=== PATIENT | female | born 1945 | race Caucasian/White ===

== ENCOUNTER → 2020-11-04 12:53 | Outpatient (CLI) | payer MEDICARE, SELFPAY ==
[2020-11-04 14:45] LABS: Chloride 106 mmol/L (98-107); Potassium 3.5 mmoL/L (3.5-5.1); Sodium 143 mmol/L (136-145)
[2020-11-04 14:47] LABS: Alanine Aminotransferase 20 U/L (12-78); Aspartate Amino Transferase 35 U/L (14-36); Blood Urea Nitrogen 8 mg/dl (7-17); Estimated Glomerular Filt Rate 61 ml/min (>60); GFR (African American) 74 ML/MIN (>60)
[2020-11-04 14:48] LABS: Albumin Level 4.2 g/dl (3.5-5.0); Albumin/Globulin Ratio 1.5 (1.1-1.8); Alkaline Phosphatase 104 U/L (38-126); Anion Gap 11.5 mEq/L (5-15); Calcium 9.5 mg/dl (8.4-10.2); Carbon Dioxide 29 mmol/L (22.0-30.0); Chol/HDL Ratio 3.7 (1-3.5); Cholesterol 155 mg/dl (140-200); Globulin 2.8 g/dL (1.3-3.2); Glucose 96 mg/dl (74-100); HDL Cholesterol 42 mg/dl (40-60); Triglycerides 146 mg/dl (30-150); VLDL Cholesterol 29 mg/dL (0-40)
[2020-11-04 15:00] LABS: Direct LDL Cholesterol 79.35 mg/dL (100-129)
== END ==
PROVIDERS: Visit Provider Internal Medicine
DX: D64.9 Anemia, unspecified (principal); I10 Essential (primary) hypertension; E78.5 Hyperlipidemia, unspecified; E03.9 Hypothyroidism, unspecified
CPT/HCPCS: 80053; 80061

== ENCOUNTER → 2021-05-04 12:58 | Outpatient (CLI) | payer MEDICARE, SELFPAY ==
[2021-05-04 14:03] LABS: Basophils % 0.9 % (0.1-2.0); Eosinophils # 0.1 K/mm3 (0.0-0.4); Eosinophils % 2.5 % (0.1-12.0); Hemoglobin 13.7 g/dL (12.2-16.2); Lymphocytes # 1.4 K/mm3 (0.7-4.5); Lymphocytes % 31.7 % (10-50); Mean Corpuscular HGB Conc 32.6 g/dL (31.8-35.4); Mean Corpuscular Hemoglobin 30.1 pg (27.0-31.2); Mean Corpuscular Volume 92.3 fl (81-99); Mean Platelet Volume 9.7 fl (7.4-10.4); Monocytes # 0.2 K/mm3 (0.1-1.0); Monocytes % 4.9 % (1.7-9.3); Neutrophils # 2.7 K/mm3 (1.8-7.8); Neutrophils % 59.9 % (37.0-80.0); Platelet Count 236 K/mm3 (142-424); Red Blood Count 4.55 M/mm3 (4.20-5.40); Red Cell Distribution Width 13.4 % (11.5-17.5); White Blood Count 4.4 K/mm3 (4.8-10.8)
[2021-05-04 15:49] LABS: Alanine Aminotransferase 17 U/L (12-78); Albumin Level 4.2 g/dl (3.5-5.0); Albumin/Globulin Ratio 1.6 (1.1-1.8); Alkaline Phosphatase 93 U/L (38-126); Anion Gap 9.7 mEq/L (5-15); Aspartate Amino Transferase 29 U/L (14-36); Bilirubin,Total 1.1 mg/dl (0.2-1.3); Blood Urea Nitrogen 9 mg/dl (7-17); Calcium 9.1 mg/dl (8.4-10.2); Carbon Dioxide 31 mmol/L (22.0-30.0); Chloride 105 mmol/L (98-107); Chol/HDL Ratio 3.8 (1-3.5); Cholesterol 150 mg/dl (140-200); Estimated Glomerular Filt Rate 54 ml/min (>60); GFR (African American) 65 ML/MIN (>60); Globulin 2.7 g/dL (1.3-3.2); Glucose 89 mg/dl (74-100); HDL Cholesterol 40 mg/dl (40-60); Potassium 3.7 mmoL/L (3.5-5.1); Sodium 142 mmol/L (136-145); Total Protein,Serum 6.9 g/dl (6.3-8.2); Triglycerides 134 mg/dl (30-150); VLDL Cholesterol 27 mg/dL (0-40)
[2021-05-04 16:00] LABS: Direct LDL Cholesterol 73.57 mg/dL (100-129)
[2021-05-04 16:27] LABS: Thyroid Stimulating Hormone 4.82 uIU/mL (0.465-4.68)
== END ==
PROVIDERS: Visit Provider Internal Medicine
DX: D64.9 Anemia, unspecified (principal); E78.5 Hyperlipidemia, unspecified; E03.9 Hypothyroidism, unspecified; I10 Essential (primary) hypertension
CPT/HCPCS: 80053; 80061; 84443; 85025

== ENCOUNTER → 2021-08-12 12:17 | Outpatient (CLI) | payer MEDICARE, SELFPAY | PROVIDERS: PCP Internal Medicine; Visit Provider Internal Medicine | DX: I10 Essential (primary) hypertension (principal) ==

== ENCOUNTER → 2021-08-12 12:37 | Outpatient (CLI) | payer MEDICARE, SELFPAY ==
[2021-08-12 15:20] LABS: Chloride 106 mmol/L (98-107); Potassium 4.3 mmoL/L (3.5-5.1); Sodium 142 mmol/L (136-145)
[2021-08-12 15:22] LABS: Blood Urea Nitrogen 7 mg/dl (7-17); Estimated Glomerular Filt Rate 54 ml/min (>60); GFR (African American) 65 ML/MIN (>60)
[2021-08-12 15:23] LABS: Anion Gap 12.3 mEq/L (5-15); Calcium 10.2 mg/dl (8.4-10.2); Carbon Dioxide 28 mmol/L (22.0-30.0); Glucose 89 mg/dl (74-100)
[2021-08-12 16:05] LABS: Uric Acid 7.6 mg/dl (2.5-6.2)
== END ==
PROVIDERS: PCP Internal Medicine; Visit Provider Internal Medicine
DX: I10 Essential (primary) hypertension (principal); E03.9 Hypothyroidism, unspecified; M79.675 Pain in left toe(s); Z87.39 Personal history of other diseases of the musculoskeletal system and connective tissue
CPT/HCPCS: 80048; 84443; 84550

== ENCOUNTER → 2021-11-17 16:57 | Outpatient (CLI) | payer MEDICARE, SELFPAY ==
[2021-11-17 18:21] LABS: Basophils # 0.4 K/mm3 (0-0.2); Basophils % 6.3 % (0.1-2.0); Eosinophils # 0.1 K/mm3 (0.0-0.4); Hematocrit 51.5 % (37.0-47.0); Hemoglobin 13.8 g/dL (12.2-16.2); Lymphocytes # 1.9 K/mm3 (0.7-4.5); Lymphocytes % 29.9 % (10-50); Mean Corpuscular HGB Conc 26.8 g/dL (31.8-35.4); Mean Corpuscular Hemoglobin 29.6 pg (27.0-31.2); Mean Corpuscular Volume 110.3 fl (81-99); Mean Platelet Volume 24.9 fl (7.4-10.4); Monocytes # 0.4 K/mm3 (0.1-1.0); Monocytes % 6.4 % (1.7-9.3); Neutrophils % 61.7 % (37.0-80.0); Platelet Count 163 K/mm3 (142-424); Red Blood Count 4.67 M/mm3 (4.20-5.40); Red Cell Distribution Width 19.4 % (11.5-17.5); White Blood Count 6.5 K/mm3 (4.8-10.8)
[2021-11-17 19:39] LABS: Alanine Aminotransferase 25 U/L (12-78); Albumin Level 4.2 g/dl (3.5-5.0); Albumin/Globulin Ratio 1.6 (1.1-1.8); Alkaline Phosphatase 131 U/L (38-126); Anion Gap 16.6 mEq/L (5-15); Aspartate Amino Transferase 36 U/L (14-36); Bilirubin,Total 1.2 mg/dl (0.2-1.3); Blood Urea Nitrogen 11 mg/dl (7-17); Calcium 9.3 mg/dl (8.4-10.2); Carbon Dioxide 28 mmol/L (22.0-30.0); Chloride 100 mmol/L (98-107); Chol/HDL Ratio 3.9 (1-3.5); Cholesterol 145 mg/dl (140-200); Estimated Glomerular Filt Rate 54 ml/min (>60); GFR (African American) 65 ML/MIN (>60); Globulin 2.7 g/dL (1.3-3.2); Glucose 83 mg/dl (74-100); HDL Cholesterol 37 mg/dl (40-60); Potassium 3.6 mmoL/L (3.5-5.1); Sodium 141 mmol/L (136-145); Total Protein,Serum 6.9 g/dl (6.3-8.2); Triglycerides 184 mg/dl (30-150); Uric Acid 8.8 mg/dl (2.5-6.2); VLDL Cholesterol 37 mg/dL (0-40)
[2021-11-18 14:52] LABS: Reticulocyte % (Auto) 1.5 % (0.9-3.2)
[2021-11-18 16:01] LABS: Vitamin B12 524 pg/mL (239-931)
[2021-11-18 16:03] LABS: Folate 4.86 ng/mL
== END ==
PROVIDERS: PCP Internal Medicine; Visit Provider Internal Medicine
DX: I10 Essential (primary) hypertension (principal); E03.9 Hypothyroidism, unspecified; E78.5 Hyperlipidemia, unspecified; D64.9 Anemia, unspecified; K59.00 Constipation, unspecified; D75.89 Other specified diseases of blood and blood-forming organs; Z87.39 Personal history of other diseases of the musculoskeletal system and connective tissue
CPT/HCPCS: 80053; 80061; 82607; 82746; 84550; 85025; 85044

== ENCOUNTER → 2022-05-18 11:54 | Outpatient (CLI) | payer MEDICARE, SELFPAY ==
[2022-05-18 12:45] LABS: Basophils # 0.1 K/mm3 (0-0.2); Basophils % 1.2 % (0.1-2.0); Eosinophils # 0.1 K/mm3 (0.0-0.4); Eosinophils % 2.3 % (0.1-12.0); Hematocrit 41.7 % (37.0-47.0); Hemoglobin 13.6 g/dL (12.2-16.2); Lymphocytes # 1.3 K/mm3 (0.7-4.5); Lymphocytes % 33.4 % (10-50); Mean Corpuscular HGB Conc 32.6 g/dL (31.8-35.4); Mean Corpuscular Hemoglobin 28.5 pg (27.0-31.2); Mean Corpuscular Volume 87.4 fl (81-99); Mean Platelet Volume 9.9 fl (7.4-10.4); Monocytes # 0.2 K/mm3 (0.1-1.0); Monocytes % 5.6 % (1.7-9.3); Neutrophils # 2.2 K/mm3 (1.8-7.8); Neutrophils % 57.5 % (37.0-80.0); Platelet Count 196 K/mm3 (142-424); Red Blood Count 4.77 M/mm3 (4.20-5.40); Red Cell Distribution Width 13.2 % (11.5-17.5); White Blood Count 3.9 K/mm3 (4.8-10.8)
[2022-05-18 13:17] LABS: Erythrocyte Sedimentation Rate 13 mm/hr (0-30)
[2022-05-18 14:04] LABS: Chloride 104 mmol/L (98-107); Potassium 3.7 mmoL/L (3.5-5.1); Sodium 140 mmol/L (136-145)
[2022-05-18 14:06] LABS: Alanine Aminotransferase 24 U/L (12-78); Aspartate Amino Transferase 37 U/L (14-36); Blood Urea Nitrogen 12 mg/dl (7-17); Estimated Glomerular Filt Rate 54 ml/min (>60); GFR (African American) 65 ML/MIN (>60)
[2022-05-18 14:07] LABS: Albumin Level 4.2 g/dl (3.5-5.0); Albumin/Globulin Ratio 1.6 (1.1-1.8); Alkaline Phosphatase 107 U/L (38-126); Anion Gap 11.7 mEq/L (5-15); Bilirubin,Total 1.3 mg/dl (0.2-1.3); Calcium 9.1 mg/dl (8.4-10.2); Carbon Dioxide 28 mmol/L (22.0-30.0); Chol/HDL Ratio 3.3 (1-3.5); Cholesterol 130 mg/dl (140-200); Globulin 2.6 g/dL (1.3-3.2); Glucose 102 mg/dl (74-100); HDL Cholesterol 40 mg/dl (40-60); Total Protein,Serum 6.8 g/dl (6.3-8.2); Triglycerides 113 mg/dl (30-150); VLDL Cholesterol 23 mg/dL (0-40)
[2022-05-18 14:18] LABS: Direct LDL Cholesterol 73.88 mg/dL (100-129)
[2022-05-18 14:37] LABS: Thyroid Stimulating Hormone 0.62 uIU/mL (0.465-4.68)
[2022-05-18 16:01] LABS: Vitamin B12 605 pg/mL (239-931)
[2022-05-18 16:13] LABS: Folate 5.29 ng/mL
== END ==
PROVIDERS: PCP Internal Medicine; Visit Provider Internal Medicine
DX: I10 Essential (primary) hypertension (principal); E03.9 Hypothyroidism, unspecified; E78.5 Hyperlipidemia, unspecified; D64.9 Anemia, unspecified; K59.00 Constipation, unspecified; G60.9 Hereditary and idiopathic neuropathy, unspecified
CPT/HCPCS: 80053; 80061; 82607; 82746; 84443; 85025; 85651

== ENCOUNTER 2022-10-07 09:17 | Emergency (ER) | payer MEDICARE, SELFPAY ==
[2022-10-07 09:30] VITALS: BP 138/109; PULSE 65; RESP 19; TEMP 36.8; O2SAT 97; BMI 24.7
--- NOTE | 2022-10-07 09:30 | EXP.UTC ---
Discharge Plan Disposition Patient Disposition: Home, Self-Care Condition: Good Prescriptions Prescriptions: New methylprednisolone 4 mg Tablets,Dose Pack 4 mg PO DIRECTED Qty: 21 0RF No Action levothyroxine [Synthroid] 88 MCG tablet 88 mcg PO DAILY metoprolol tartrate 50 MG tablet 50 mg PO DAILY lisinopril 2.5 MG tablet 2.5 mg PO DAILY omega-3 fatty acids [Fish Oil] 300 MG capsule 300 mg PO DAILY promethazine 12.5 MG tablet 12.5 mg PO TID PRN (Reason: Vomiting) Qty: 20 0RF promethazine 12.5 MG suppository 12.5 mg * BID Qty: 20 0RF Referrals Follow up/Referrals: Shiraz Aviles MD [Primary Care Provider] - See instructions Activity Restrictions/Add. Instructions Additional Instructions/Restrictions: Rest the extremity, Elevate the extremity as tolerated while you are resting. Take the medication as directed. Don't start the oral steroids (methylprednisone) until tomorrow since you had the shot here today. Follow up with your regular doctor. GO TO THE ER FOR ANY WORSENING SYMPTOMS Clinical Impressions Clinical Impression: Gout attack Instructions Patient Instructions: Gout, DI for Gout, Ketorolac, Methylprednisolone Injection Discharge ED Provider: Luis Santillan [facility] [place] HPI General Stated complaint: Right foot toe pain Time Seen by Provider: 10/07/22 09:30 History of Present Illness Provider Complaint: She states that she has had right foot pain for the past 2 days. She has a history of gout. She states that she is having a gout flare up now. Related Data Home Medications Medication Instructions Recorded Confirmed levothyroxine 88 mcg tablet 88 mcg PO DAILY thyroid 11/04/17 11/04/17 (Synthroid) lisinopril 2.5 mg tablet 2.5 mg PO DAILY High blood pressure 11/04/17 11/04/17 metoprolol tartrate 50 mg tablet 50 mg PO DAILY High blood pressure 11/04/17 11/04/17 omega-3 fatty acids 300 mg capsule 300 mg PO DAILY Supplement 11/04/17 11/04/17 (Fish Oil) Previous Rx's Medication Instructions Recorded promethazine 12.5 mg rectal 12.5 mg * BID ##20 11/05/17 suppository promethazine 12.5 mg tablet 12.5 mg PO TID PRN Vomiting #20 11/05/17 tabs methylprednisolone 4 mg tablets in 4 mg PO DIRECTED #21 tabs 10/07/22 a dose pack Allergies Allergy/AdvReac Type Severity Reaction Status Date / Time morphine Allergy Mild Vomiting Verified 11/04/17 16:41 codeine Allergy Verified 10/07/22 09:46 [facility] Disclaimer: The information contained in this section may have been updated after the patient was seen, as this information can be updated by other users. Medical History (Updated 10/07/22 @ 10:02 by Luis Santillan APRN) Hypertension Social History Smoking Status: Never smoker alcohol intake: never current occupational status: retired Travel in the last 8 weeks: None ROS Obtained: Yes All systems reviewed & no additional complaints except as documented Constitutional Constitutional: Denies chills and Denies fever(s) Eyes Eyes: Denies eye discharge ENT Ears, Nose, Mouth, and Throat: Denies dizziness, Denies otalgia and Denies sore throat Cardiovascular Cardiovascular: Denies chest pain Respiratory Respiratory: Denies shortness of breath, Denies chest congestion, Denies cough, Denies stridor and Denies wheezing Gastrointestinal Gastrointestingal: Denies nausea or vomiting Musculoskeletal Musculoskeletal: Reports as per HPI Integumentary/Breasts Skin/Breast: Denies rash Neurologic Neurologic: Denies dizziness and Denies paresthesias Allergic/Immunologic Allergic/Immunologic: Denies wheezing Physical Exam General General appearance: alert and in no apparent distress Head Head exam: atraumatic, normocephalic and normal inspection Eye Eye exam: Present normal appearance, PERRL and EOMI ENT ENT exam: Present normal exam, normal oropharynx, mucous membranes moist, TM's normal bilaterally and normal external ear e
[2022-10-07 10:03] VITALS: BP 138/109; PULSE 65; RESP 19; TEMP 36.8; O2SAT 97
== END 2022-10-07 10:08 | disposition home or self-care (01) ==
PROVIDERS: Emergency Provider Nurse Practitioner Family; PCP Internal Medicine
DX: M10.071 Idiopathic gout, right ankle and foot (principal); I10 Essential (primary) hypertension
CPT/HCPCS: 96372; 99204; 99212; G0463

== ENCOUNTER → 2022-10-29 17:10 | Outpatient (CLI) | payer MEDICARE, SELFPAY ==
[2022-10-29 17:58] LABS: Anion Gap 12.6 mEq/L (5-15); Blood Urea Nitrogen 10 mg/dl (7-17); Calcium 9.7 mg/dl (8.4-10.2); Carbon Dioxide 31 mmol/L (22.0-30.0); Chloride 102 mmol/L (98-107); Estimated Glomerular Filt Rate 48 ml/min (>60); GFR (African American) 58 ML/MIN (>60); Glucose 82 mg/dl (74-100); Potassium 3.6 mmoL/L (3.5-5.1); Sodium 142 mmol/L (136-145); Uric Acid 7.6 mg/dl (2.5-6.2)
== END ==
PROVIDERS: PCP Internal Medicine; Visit Provider Internal Medicine
DX: M10.9 Gout, unspecified (principal)
CPT/HCPCS: 80048; 84550

== ENCOUNTER → 2022-11-17 13:23 | Outpatient (CLI) | payer MEDICARE, SELFPAY ==
[2022-11-17 14:41] LABS: Alanine Aminotransferase 31 U/L (12-78); Albumin/Globulin Ratio 1.5 (1.1-1.8); Alkaline Phosphatase 99 U/L (38-126); Anion Gap 10.7 mEq/L (5-15); Aspartate Amino Transferase 37 U/L (14-36); Bilirubin,Total 1.4 mg/dl (0.2-1.3); Blood Urea Nitrogen 9 mg/dl (7-17); Calcium 9.2 mg/dl (8.4-10.2); Carbon Dioxide 30 mmol/L (22.0-30.0); Chloride 104 mmol/L (98-107); Chol/HDL Ratio 3.9 (1-3.5); Cholesterol 145 mg/dl (140-200); Estimated Glomerular Filt Rate 54 ml/min (>60); GFR (African American) 65 ML/MIN (>60); Globulin 2.6 g/dL (1.3-3.2); Glucose 102 mg/dl (74-100); HDL Cholesterol 37 mg/dl (40-60); Potassium 3.7 mmoL/L (3.5-5.1); Sodium 141 mmol/L (136-145); Total Protein,Serum 6.6 g/dl (6.3-8.2); Triglycerides 176 mg/dl (30-150); Uric Acid 7.6 mg/dl (2.5-6.2); VLDL Cholesterol 35 mg/dL (0-40)
[2022-11-17 14:51] LABS: Direct LDL Cholesterol 76.56 mg/dL (100-129)
== END ==
PROVIDERS: PCP Internal Medicine; Visit Provider Internal Medicine
DX: I10 Essential (primary) hypertension (principal); E78.5 Hyperlipidemia, unspecified; M10.9 Gout, unspecified
CPT/HCPCS: 80053; 80061; 84550

== ENCOUNTER → 2023-01-19 14:15 | Outpatient (CLI) | payer MEDICARE, SELFPAY ==
[2023-01-19 15:21] LABS: Alanine Aminotransferase 24 U/L (12-78); Albumin Level 4.2 g/dl (3.5-5.0); Albumin/Globulin Ratio 1.6 (1.1-1.8); Alkaline Phosphatase 101 U/L (38-126); Anion Gap 12.4 mEq/L (5-15); Aspartate Amino Transferase 35 U/L (14-36); Blood Urea Nitrogen 8 mg/dl (7-17); Calcium 8.8 mg/dl (8.4-10.2); Carbon Dioxide 27 mmol/L (22.0-30.0); Chloride 105 mmol/L (98-107); Estimated Glomerular Filt Rate 48 ml/min (>60); GFR (African American) 58 ML/MIN (>60); Globulin 2.7 g/dL (1.3-3.2); Glucose 93 mg/dl (74-100); Potassium 3.4 mmoL/L (3.5-5.1); Sodium 141 mmol/L (136-145); Total Protein,Serum 6.9 g/dl (6.3-8.2)
== END ==
PROVIDERS: PCP Internal Medicine; Visit Provider Internal Medicine
DX: R74.8 Abnormal levels of other serum enzymes (principal)
CPT/HCPCS: 80053

== ENCOUNTER 2023-02-07 12:00 | Emergency (ER) | payer MEDICARE, SELFPAY ==
[2023-02-07 13:55] VITALS: BP 130/80; PULSE 107; RESP 21; TEMP 37.5; O2SAT 98; BMI 26.2
[2023-02-07 14:20] LABS: UTC Influenza A Antigen Negative (Negative); UTC Influenza B Antigen Negative (Negative)
--- NOTE | 2023-02-07 14:20 | EXP.UTC ---
Discharge Plan Disposition Patient Disposition: Home, Self-Care Condition: Good Prescriptions Prescriptions: New ondansetron 4 mg tablet,disintegrating 4 mg PO Q8H PRN (Reason: nausea and vomiting) Qty: 10 0RF cefdinir 300 mg capsule 300 mg PO BID Qty: 20 0RF No Action levothyroxine 100 mcg tablet 100 mcg PO DAILY metoprolol tartrate 50 mg tablet 50 mg PO DAILY aspirin 81 mg Tablet,Chewable 81 mg PO DAILY lovastatin 20 mg tablet 20 mg PO DAILY lisinopril 2.5 mg tablet 2.5 mg PO DAILY Referrals Follow up/Referrals: Shiraz Aviles MD [Primary Care Provider] - See instructions Activity Restrictions/Add. Instructions Additional Instructions/Restrictions: *Monitor Temp, Over the counter Motrin or Tylenol as directed/as needed Tylenol every 4 hours and Motrin every 6 hours (as long as your family doctor has told you that you can take it) for fever or pain. and straight to ER if unable to lower temp less than 101.0 after medication given *Warm salt water gargles may help to soothe the throat *Throat Lozenges? *Warm fluids like tea with honey may help to soothe the throat? *Sleep elevated *Humidifier/Vaporizer Follow up IMMEDIATELY for new or worsening symptoms or no Noticeable improvement over the next 48-72 hours. 911 for difficulty breathing or swallowing You were tested for today for COVID19 your test result should be back in the next 24-72 hours, you may check your results on the [facility] [employer] Health Portal if your COVID is positive you must Q Clinical Impressions Clinical Impression: Sinusitis Qualifiers: Sinusitis location: unspecified location Chronicity: unspecified Qualified Code(s): J32.9 - Chronic sinusitis, unspecified Instructions Patient Instructions: DI for Sinusitis, DI for Nausea -- Adult, DI for Ear Pain-Adult Discharge ED Provider: Heaven [place] [facility] [place] General Stated complaint: congestion Mode of Arrival: Ambulatory Source of Information: Patient Limitations: No Limitations Time Seen by Provider: 02/07/23 14:20 Description of Symptoms (Recalled from Triage Doc. by RN): PATIENT C/O CONGESTION, BODY ACHES, AND WEAKNESS X 2 DAYS HEENT Symptoms (Recalled from RN notes): Yes Resp Symptoms (Recalled from RN notes): No Skin Symptoms (Recalled from RN notes): No MS Symptoms (Recalled from RN notes): No Functional Status (Recalled from RN notes): WNL History of Present Illness Provider Complaint: Patient states that for the last couple of days she has not been feeling well States that she has been having sinus pain and pressure, drainage in the back of her throat that is making her sick at her stomach, body aches, chills, headache and pressure in her ears States that today she wasnt feeling any better so she came in to get checked Related Data Home Medications Medication Instructions Recorded Confirmed aspirin 81 mg chewable tablet 81 mg PO DAILY 02/07/23 02/07/23 levothyroxine 100 mcg tablet 100 mcg PO DAILY 02/07/23 02/07/23 lisinopril 2.5 mg tablet 2.5 mg PO DAILY 02/07/23 02/07/23 lovastatin 20 mg tablet 20 mg PO DAILY 02/07/23 02/07/23 metoprolol tartrate 50 mg tablet 50 mg PO DAILY 02/07/23 02/07/23 Previous Rx's Medication Instructions Recorded cefdinir 300 mg capsule 300 mg PO BID #20 caps 02/07/23 ondansetron 4 mg disintegrating 4 mg PO Q8H PRN nausea and 02/07/23 tablet vomiting #10 tabs Allergies Allergy/AdvReac Type Severity Reaction Status Date / Time morphine Allergy Mild Vomiting Verified 11/04/17 16:41 codeine Allergy Verified 10/07/22 09:46 Worker's Comp Is this a Worker's Comp case?: No [facility] Disclaimer: The information contained in this section may have been updated after the patient was seen, as this information can be updated by other users. Medical History (Updated 02/07/23 @ 14:28 by Heaven Fonseca APRN) Hypertension Thyroid disease Social History (Updated 10/07/22 @ 10:55 by Luis Santillan APRN) Smoking Status: Never smoker alcohol intake: never current occupational status: retired Travel in the last 8 weeks: None ROS Obtained: Yes All systems reviewed & no additional complaints except as documented and Yes Systems reviewed as appropriate & no additional complaints except as documented Constitutional Constitutional: Reports system reviewed and no additional complaints, except as documented, Reports as per HPI, Reports body ache, Reports chills and Reports headache(s) ENT Ears, Nose, Mouth, and Throat: Reports system reviewed and no additional complaints, except as documented, Reports as per HPI, Reports otalgia (pressure in her ears), Reports headache(s), Reports sinus pain, Reports sinus pressure and Reports sore throat Cardiovascular Cardiovascular: Reports system reviewed and no additional complaints, except as documented and Reports as per HPI Respiratory Respiratory: Reports system reviewed and no additional complaints, except as documented and Reports as per HPI Gastrointestinal Gastrointestingal: Reports system reviewed and no additional complaints, except as documented, as per HPI and nausea; Denies abdominal pain, diarrhea or vomiting Neurologic Neurologic: Reports system reviewed and no additional complaints, except as documented, Reports as per HPI and Reports headache(s) Physical Exam General General appearance: alert and in no apparent distress ENT ENT exam: Present mucous membranes moist Expanded ENT Exam TM/Canal exam: Bilateral TM: bulging Nose exam: Present sinus tenderness Throat exam: Present other (Pharyngeal erythema noted with PND) Chest Chest inspection: Present normal inspection and symmetric chest wall rise Respiratory Respiratory exam: Present normal lung sounds bilaterally; Absent respiratory distress or wheezes Cardiovascular Cardiovascular exam: Present regular rate, normal rhythm and normal heart sounds Abdominal Exam Abdominal exam: Present soft and normal bowel sounds; Absent distention or tenderness Neurological Exam Neurological exam: Present alert, oriented X3 and normal gait Medical Decision Making Trae Inquiry Pt receiving controlled substance: No Trae was queried for this patient: No Vital Signs: 02/07/23 13:55 Temperature 99.5 F Temperature Source Oral Pulse Rate [Left Brachial] 107 H Respiratory Rate 21 Blood Pressure [Left Arm] 130/80 Blood Pressure Mean [Left Arm] 96 Blood Pressure Source [Left Arm] Automatic Cuff Blood Pressure Position [Left Arm] Sitting 02 Sat by Pulse Oximetry 98 Oxygen Delivery Method Room Air Lab Data Lab results reviewed: Yes I reviewed the patient's lab results.
[2023-02-07 14:25] VITALS: BP 130/80; PULSE 107; RESP 21; TEMP 37.5; O2SAT 98
== END 2023-02-07 14:40 | disposition home or self-care (01) ==
PROVIDERS: Emergency Provider Nurse Practitioner; PCP Internal Medicine
DX: J01.90 Acute sinusitis, unspecified (principal); R11.0 Nausea; R51.9 Headache, unspecified; R09.81 Nasal congestion; R09.82 Postnasal drip; H92.03 Otalgia, bilateral; M79.18 Myalgia, other site; I10 Essential (primary) hypertension; E03.9 Hypothyroidism, unspecified
CPT/HCPCS: 87635; 87804; 99212; 99214; G0463

== ENCOUNTER 2023-05-18 10:15 | Outpatient (CLI) | payer MEDICARE, SELFPAY ==
[2023-05-18 11:38] LABS: Basophils # 0.1 K/mm3 (0-0.2); Basophils % 1.5 % (0.1-2.0); Eosinophils # 0.1 K/mm3 (0.0-0.4); Eosinophils % 2.3 % (0.1-12.0); Hematocrit 42.5 % (37.0-47.0); Hemoglobin 14.3 g/dL (12.2-16.2); Lymphocytes # 1.3 K/mm3 (0.7-4.5); Lymphocytes % 34.9 % (10-50); Mean Corpuscular HGB Conc 33.6 g/dL (31.8-35.4); Mean Corpuscular Hemoglobin 29.9 pg (27.0-31.2); Mean Corpuscular Volume 88.9 fl (81-99); Mean Platelet Volume 9.7 fl (7.4-10.4); Monocytes # 0.3 K/mm3 (0.1-1.0); Monocytes % 6.9 % (1.7-9.3); Neutrophils # 2.1 K/mm3 (1.8-7.8); Neutrophils % 54.4 % (37.0-80.0); Platelet Count 201 K/mm3 (142-424); Red Blood Count 4.77 M/mm3 (4.20-5.40); Red Cell Distribution Width 13.9 % (11.5-17.5); White Blood Count 3.8 K/mm3 (4.8-10.8)
[2023-05-18 12:39] LABS: Chloride 106 mmol/L (98-107); Potassium 3.9 mmoL/L (3.5-5.1); Sodium 142 mmol/L (136-145)
[2023-05-18 12:41] LABS: Alanine Aminotransferase 32 U/L (12-78); Aspartate Amino Transferase 46 U/L (14-36); Blood Urea Nitrogen 9 mg/dl (7-17); Estimated Glomerular Filt Rate 54 ml/min (>60); GFR (African American) 65 ML/MIN (>60)
[2023-05-18 12:42] LABS: Albumin/Globulin Ratio 1.4 (1.1-1.8); Alkaline Phosphatase 125 U/L (38-126); Anion Gap 8.9 mEq/L (5-15); Bilirubin,Total 1.5 mg/dl (0.2-1.3); Calcium 9.5 mg/dl (8.4-10.2); Carbon Dioxide 31 mmol/L (22.0-30.0); Cholesterol 135 mg/dl (140-200); Globulin 2.8 g/dL (1.3-3.2); Glucose 109 mg/dl (74-100); Total Protein,Serum 6.8 g/dl (6.3-8.2); Triglycerides 160 mg/dl (30-150); VLDL Cholesterol 32 mg/dL (0-40)
[2023-05-18 12:43] LABS: Chol/HDL Ratio 4.5 (1-3.5); HDL Cholesterol 30 mg/dl (40-60)
[2023-05-18 12:56] LABS: Direct LDL Cholesterol 74.02 mg/dL (100-129)
[2023-05-18 13:51] LABS: Folate 7.87 ng/mL; Vitamin B12 472 pg/mL (239-931)
[2023-05-18 16:30] LABS: Erythrocyte Sedimentation Rate 22 mm/hr (0-30)
[2023-05-19 13:53] LABS: Albumin 3.7 g/dL (2.9-4.4); Alpha-1-Globulin 0.3 g/dL (0.0-0.4); Alpha-2-Globulin 0.7 g/dL (0.4-1.0); Gamma Globulin 1.4 g/dL (0.4-1.8)
[2023-05-24 09:20] LABS: PDF SCANNED IMAGE
== END 2023-05-18 23:59 | disposition home or self-care (01) ==
LOC: LAB.DROPOF 10:17
PROVIDERS: PCP Internal Medicine; Visit Provider Internal Medicine
DX: I10 Essential (primary) hypertension (principal); E03.9 Hypothyroidism, unspecified; K59.00 Constipation, unspecified; G60.9 Hereditary and idiopathic neuropathy, unspecified; M10.9 Gout, unspecified; D64.9 Anemia, unspecified; Z79.899 Other long term (current) drug therapy
CPT/HCPCS: 80053; 80061; 82607; 82746; 83036; 84155; 84165; 84443; 84550; 85025; 85651

== ENCOUNTER 2023-11-16 01:43 | Emergency (ER) | payer MEDICARE, SELFPAY ==
[2023-11-16] VITALS (7 sets, daily range): BP systolic 122–152; BP diastolic 65–76; PULSE 70–76; RESP 17–22; TEMP 36.7; O2SAT 97–100; BMI 25.2
--- NOTE | 2023-11-16 01:45 | ECG_ITS ---
APPROVED REPORT Exam: Resting ECG HR:78 bpm ECG Measurements Heart Rate 78 AXES IL 172 P 28 QRSd 80 QRS 74 QT 376 T 22 QTc 409 Conclusion SINUS RHYTHM LOW QRS VOLTAGE IN PRECORDIAL LEADS [QRS DEFLECTION < 1.0 mV IN CHEST LEADS] POSSIBLE ANTERIOR MYOCARDIAL INFARCTION , PROBABLY OLD [30 ms Q WAVE IN V3/V4, OR R < 0.2 mV IN V4] No STEMI Electronically signed by : BERYL STEARNS, 11/17/2023 07:37:00
--- NOTE | 2023-11-16 01:48 | CT_ITS ---
PROCEDURE INFORMATION: Exam: CT Neck With Contrast Exam date and time: 11/16/2023 2:37 AM Age: 78 years old Clinical indication: Other: Sensation of choking; Additional info: Sensation of choking now resolved TECHNIQUE: Imaging protocol: Computed tomography of the neck with contrast. Radiation optimization: All CT scans at this facility use at least one of these dose optimization techniques: automated exposure control; mA and/or kV adjustment per patient size (includes targeted exams where dose is matched to clinical indication); or iterative reconstruction. Contrast material: ISOVUE; Contrast volume: 75 ml; Contrast route: IV; COMPARISON: CR Chest 11/16/2023 2:18 AM FINDINGS: Salivary glands: Normal. Glands are normal in size. Pharynx: Unremarkable. No significant tonsillar enlargement. Prevertebral and retropharyngeal spaces: Unremarkable. Larynx: There is mild asymmetry of the left piriform sinus which appears to be related to mild thickening of the left aryepiglottic fold. The epiglottis is normal. Thyroid: The thyroid gland is small in size. No enlarged or calcified nodules. Trachea: Visualized trachea is unremarkable. Lungs: Subtle scattered atelectasis. Heart: Partial imaging the heart demonstrates coronary artery calcification. Esophagus: Mild gaseous distension of the esophageal lumen. Lymph nodes: No lymphadenopathy. 8 x 6 mm left group 2 lymph node noted. Vasculature: Atherosclerotic calcification of the carotid arteries. Bones/joints: No acute fracture. Soft tissues: No significant soft tissue swelling. IMPRESSION: 1. Mild asymmetry of the left piriform sinus appears to be related to mild thickening of the left aryepiglottic fold. Presentation may be related to infection, inflammation, anatomic variation and follow-up ENT evaluation is recommended to exclude lesion. 2. Mild gaseous distension of the esophageal lumen. 3. Coronary artery calcification. Atherosclerotic calcification of the carotid arteries.
--- NOTE | 2023-11-16 01:49 | XR_ITS ---
PROCEDURE INFORMATION: Exam: XR Chest Exam date and time: 11/16/2023 2:18 AM Age: 78 years old Clinical indication: Shortness of breath; Additional info: SOA TECHNIQUE: Imaging protocol: Radiologic exam of the chest. Views: 2 views. COMPARISON: CR [id number] XR chest portable 11/04/2017 4:27 PM FINDINGS: Lungs: Unchanged 3 mm calcified granuloma of the left lung base. No consolidation. Pleural spaces: No pleural effusion. No pneumothorax. Heart/Mediastinum: No cardiomegaly. Bones/joints: Within normal limits. IMPRESSION: No radiographic evidence of an acute thoracic abnormality.
--- NOTE | 2023-11-16 01:51 | [facility].EDCP ---
Discharge Plan Disposition Patient Disposition: Home, Self-Care Condition: Good Prescriptions Prescriptions: No Action levothyroxine 100 mcg tablet 100 mcg PO DAILY aspirin 81 mg Tablet,Chewable 81 mg PO DAILY metoprolol tartrate 50 mg tablet 50 mg PO BID Rx Instructions: TAKE 1 TABLET BY MOUTH TWICE DAILY FOR BLOOD PRESSURE lovastatin 20 mg tablet 20 mg PO DAILY Rx Instructions: TAKE 1 TABLET BY MOUTH ONCE DAILY lisinopril 2.5 mg tablet 2.5 mg PO DAILY Rx Instructions: TAKE 1 TABLET BY MOUTH ONCE DAILY Referrals Follow up/Referrals: Shiraz Aviles MD [Primary Care Provider] - See instructions Elizabeth Schofield APRN [Nurse Practitioner] - See instructions (Awoke from sleep with choking sensation, reassuring ED workup, has asymmetry of the left piriform sinus and thickening of the left aryepiglottic fold, please re-evaluate this abnormality, thank you!) Activity Restrictions/Add. Instructions Additional Instructions/Restrictions: You were evaluated in the ER and are appropriate for discharge at this time. Call the ENT office for follow-up, make an appointment with them as soon as possible. Also make an appointment with your primary care doctor to reevaluate your symptoms and discuss anxiety, panic attack. Drink plenty of water. Return to the ER with new, worsening, or otherwise concerning symptoms. Clinical Impressions Clinical Impression: Choking sensation, Panic attack Print Language Print Language: German Discharge ED Provider: Michaela Hernandez General Chief Complaint: Shortness of Breath/Dyspnea Stated Complaint: SOA Time Seen by Provider: 11/16/23 01:45 History of Present Illness HPI narrative: 78-year-old female with a history of hypertension, hyperlipidemia, hypothyroid presents to the ER with a complaint of sudden onset sensation of her throat being closed/choking that awoke her from sleep approximately 30 minutes prior to arrival. Patient states she experienced symptoms like this once before a few months ago but she was never evaluated. Patient states this episode awoke her from sleep because she felt like she was choking, that her throat was closed. She was able to get up and she was able to breathe and swallow despite feeling like the throat was closed, no globus sensation. She states she felt short of breath due to the choking sensation in her throat but did not feel short of breath in her chest or have actual difficulty breathing. She states that sensation spontaneously resolved and she no longer feels that her throat is closed, she is now just anxious and scared. Patient arrives tearful and clutching her chest but states she has no difficulty breathing, no chest pain, no shortness of breath, no chest pressure, no discomfort in her arm or jaw, no nausea or vomiting, no headache or dizziness, patient denies any recent symptoms of being sick. She states she has felt that her feet have been swollen recently. ROS otherwise negative. Patient reports no history of MA, stroke, lung problems, cancer, or blood clot. Family presented to bedside shortly after patient's arrival and stated patient had been mowing the lawn earlier today complaining of bilateral foot pain. She has a follow-up with her primary care doctor on for this complaint. This has been an ongoing, chronic problem, not something new or associated with her symptoms tonight. Family also reports patient gets very anxious with mild things and seems to get worked up easily. Related Data Home Medications ?Medication ?Instructions ?Recorded ?Confirmed aspirin 81 mg chewable tablet 81 mg PO DAILY 02/07/23 11/16/23 levothyroxine 100 mcg tablet 100 mcg PO DAILY 02/07/23 11/16/23 lisinopril 2.5 mg tablet 2.5 mg PO DAILY 11/16/23 11/16/23 lovastatin 20 mg tablet 20 mg PO DAILY 11/16/23 11/16/23 metoprolol tartrate 50 mg tablet 50 mg PO BID 11/16/23 11/16/23 Allergies Allergy/AdvReac Type Severity Reaction Status Date / Time morphine Allergy Mild Vomiting Verified 08/17/23 09:09 codeine Allergy Verified 08/17/23 09:09 [facility] Disclaimer: The information contained in this section may have been updated after the patient was seen, as this information can be updated by other users. Medical History (Updated 11/16/23 @ 04:06 by Michaela Hernandez MD) Thyroid disease Hypertension Social History (Updated 10/07/22 @ 10:55 by Luis Santillan APRN) Smoking Status: Never smoker alcohol intake: never current occupational status: retired Travel in the last 8 weeks: None Other Medical History Have you received the Pneumonia Vaccine: No ROS Obtained: Yes All systems reviewed & no additional complaints except as documented Positive ROS per HPI Physical Exam General General appearance: alert and anxious Comment: Arrives anxious and tearful but nontoxic, not in extremis Head Head exam: atraumatic and normocephalic Eye Eye exam: Present PERRL and EOMI ENT ENT exam: Present normal oropharynx (No swelling of mucosal membranes, no posterior oropharyngeal swelling or erythema, no findings of airway obstruction) and mucous membranes moist Neck Neck exam: Present normal inspection, full ROM, trachea midline and other (No mass appreciated on palpation); Absent tenderness or lymphadenopathy Chest Chest inspection: Present symmetric chest wall rise; Absent tenderness Respiratory Respiratory exam: Present normal lung sounds bilaterally; Absent respiratory distress, wheezes or stridor Cardiovascular Cardiovascular exam: Present regular rate and normal rhythm Abdominal Exam Abdominal exam: Present soft; Absent distention or tenderness Extremities Exam Extremities exam: Present full ROM and other (Bilateral feet had very slight swelling over the distal metatarsals, equal bilaterally, findings of degenerative changes in the toes, no findings of acute traumatic injury. No tenderness with palpation. No pitting edema. Reportedly this has been a chronic stable problem for the patient); Absent edema Neurological Exam Neurological exam: Present alert and oriented X3; Absent motor sensory deficit Psychiatric Psychiatric exam: Present anxious and other (Tearful affect, stating I am so scared ) Skin Skin exam: Present warm and dry HEART Score HEART Score HEART Score assessment performed?: Yes History (anamnesis): Slightly suspicious ECG: Normal Age: >65 years Risk factors: 1-2 risk factors Troponin: </= normal limit HEART Score: 3 Critical Care Critical Care Time Critical Care Time: No Medical Decision Making Medical Records Medical records reviewed: Yes I reviewed the patient's medical records. MR Comment: Reviewed Dr. Aviles most recent note for this patient from August 2023 demonstrating patient has peripheral neuropathy which e likely xplains her complaints of foot pain. Plan was for 6-month recheck, no new medications. Trae Inquiry Pt receiving controlled substance: No Vital Signs Vital Signs: 11/16/23 01:43 11/16/23 04:14 Temperature 98.1 F 98.1 F Temperature Source Oral Pulse Rate 72 Pulse Rate [Right] 75 Respiratory Rate 22 18 Blood Pressure 143/70 H Blood Pressure [Right Arm] 152/76 H Blood Pressure Mean [Right Arm] 101 Blood Pressure Source [Right Arm] Automatic Cuff 02 Sat by Pulse Oximetry 100 Oxygen Delivery Method Room Air Room Air Lab Data Labs: Lab Results 11/16/23 01:52: WBC 5.7, RBC 4.91, Hgb 14.5, Hct 42.6, MCV 86.8, MCH 29.6, MCHC 34.1, RDW 14.0, Plt Count 219, MPV 9.1, Neut % (Auto) 51.8, Lymph % (Auto) 38.2, [place] % (Auto) 6.5, Eos % (Auto) 1.6, Baso % (Auto) 1.9, Neut # (Auto) 3.0, Lymph # (Auto) 2.2, [place] # (Auto) 0.4, Eos # (Auto) 0.1, Baso # (Auto) 0.1, PT 10.1, INR 0.89 L, Sodium 137, Potassium 3.2 L, Chloride 104, Carbon Dioxide 24, Anion Gap 12.2, BUN 10, Creatinine 1.00, Estimated Creat Clear 47, Estimated GFR 54 L, Est GFR ( Amer) 65, Glucose 131 H, Calcium 9.8, Total Bilirubin 1.3, AST 42 H, ALT 34, Alkaline Phosphatase 105, Troponin I < 0.01, NT-Pro-B Natriuret Pep 27.6, Total Protein 7.8, Albumin 4.6, Globulin 3.2, Albumin/Globulin Ratio 1.4 11/16/23 01:56: VBG pH 7.48 H, VBG pCO2 30.9 L, VBG pO2 46.5 H, VBG HCO3 22.3 L, VBG Total CO2 23.3, VBG O2 Saturation 85.9 H, VBG Base Excess -1.2, VBG Lactic Acid 3.1 H 11/16/23 03:39: Lactate 1.3 11/16/23 01:52 11/16/23 01:52 Response Orders (Tests/Meds): ED MEDICATIONS Generic Name Dose Route Start Last Admin Trade Name Freq PRN Reason Stop Dose Admin Sodium Chloride 10 ml 11/16/23 02:43 11/16/23 02:44 Sodium Chloride 0.9% 10ml Syr (Rad Only) IV 12/16/23 02:42 10 ml NEEDED PRN Administration Maintain IV Site Discontinued Medications Generic Name Dose Route Start Last Admin Trade Name Freq PRN Reason Stop Dose Admin Sodium Chloride 1,000 mls @ 999 mls/hr 11/16/23 02:07 11/16/23 02:10 Sod Chlor 0.9% 1000ml Bag IV 11/16/23 03:07 999 mls/hr .Q1H1M ONE Administration Iopamidol 75 ml 11/16/23 02:43 11/16/23 02:44 Iopamidol-370 (76%);100ml Bottle IV 11/16/23 02:44 75 ml ONCE ONE Administration Potassium Chloride 20 meq 11/16/23 02:23 11/16/23 03:00 Potassium Chloride 20meq Tab PO 11/16/23 02:24 20 meq ONCE ONE Administration ORDERS Category Date Time Status CT soft tissue neck w con Stat Cat Scan 11/16/23 01:48 Completed CXR 2 view (NOT portable) [XR chest 2V] Stat Exams 11/16/23 01:49 Completed BNP [NT Pro Brain Natriuretic Pep.] Stat Lab 11/16/23 01:52 Completed CBC w/Auto Diff [Complete Blood Count Auto Diff] Stat Lab 11/16/23 01:52 Completed CMP [Comprehensive Metabolic Panel] Stat Lab 11/16/23 01:52 Completed HIV (1&2) Antibody Rapid Stat Lab 11/16/23 01:52 Received Hep C Ab with Reflex to RNA Stat Lab 11/16/23 01:52 Received Lactic Acid Stat Lab 11/16/23 03:39 Completed PT INR [Prothrombin Time INR] Stat Lab 11/16/23 01:52 Completed Trop I [Troponin I] Stat Lab 11/16/23 01:52 Completed Troponin I Q3H Lab 11/16/23 05:00 Ordered Troponin I Q3H Lab 11/16/23 08:00 Ordered VBG [Venous Blood Gas] Stat RT 11/16/23 01:56 Completed MDM Narrative Medical Decision Narrative: In summary, this 78-year-old female with comorbidities as listed in HPI presents to the emergency department today with sensation of choking that awoke her from sleep though symptoms are currently resolved and she is asymptomatic to stating she is scared at this time. On initial evaluation patient is hemodynamically stable, afebrile, patient is tearful and anxious but a GCS 15 with reassuring cardiopulmonary exam, no stridor, no airway obstruction, no swelling of the posterior oropharynx or mucosal membranes, no neck mass or abnormality of the neck appreciated, abdomen soft, nontender, no peripheral edema, no neurologic deficits. Differential diagnosis includes but is not limited to anxiety, panic attack, I considered the possibility of mass in the throat/neck, subglottic stenosis, or other airway obstruction though I do not appreciate findings of this on exam a CT will be performed to evaluate, also considered ACS, esophageal spasm, I considered allergic reaction/angioedema but appreciate no findings of this on exam and do not believe patient requires any antihistamines, epinephrine, or other allergic type intervention. Based on reassuring vitals and exam high suspicion for panic attack at this time. Based on these concerns, I ordered cardiac workup, serum labs, chest x-ray, CT soft tissue neck. ECG personally interpreted demonstrates normal sinus rhythm, rate 78, normal axis, normal MA and QTc, no stemi VBG demonstrates respiratory alkalosis consistent with patient having panic attack and hyperventilation, she does have mild lactic acidosis on VBG which could also be from panic attack. Patient is receiving IV fluids. Additional labs reviewed demonstrate normal CBC, nonactionable PT/INR, CMP with trace hypokalemia also potentially related to patient hyperventilating, she will receive oral potassium repletion. XR personally interpreted demonstrates no intrathoracic abnormality, see radiology read for final interpretation. CT imaging personally interpreted demonstrate possible mild narrowing near the epiglottic/subglottic space however airway is patent and there is no obstructing mass. See radiology read for full interpretation which does comment on left piriform sinus thickening and left aryepiglottic fold thickening. Nonspecific, ENT follow-up recommended. Patient has been referred to ENT for follow-up. Patient successfully tolerated oral intake in the ER. When she took her potassium pill, she swallowed this without difficulty however on her neck swallow, she held her breath. She did not actually choke, however she started to get scared and had to be told to breathe. She was able to breathe on her own but seem to nearly have another panic attack. She stated her throat felt dry when she swallowed and it scared her. After this episode she drank the rest of a bottle of water. Repeat lactic was normal. Patient has not had any recurrence of symptoms in the ER. I do not believe serial troponins are indicated at this time as patient was not describing chest pain or pressure, and characterized her shortness of breath as a tight sensation in her throat. Patient is appropriate for discharge at this time and she and her family at bedside are comfortable with this plan. Patient was given instructions on symptomatic management, follow up instructions, and return precautions for the emergency department. Patient indicated understanding and was discharged in stable condition.
[2023-11-16 02:04] LABS: VBG Base Excess -1.2 mmol/L (-2.4-2.3); VBG HCO3 22.3 mmol/L (23-30); VBG Oxygen Saturation 85.9 % (50-70); VBG PCO2 30.9 mmol/L (35-51); VBG PH 7.48 mmol/L (7.31-7.41); VBG PO2 46.5 mmol/L (28-40); VBG Total CO2 23.3 mmol/L (23-27)
[2023-11-16 02:05] LABS: Lactate Venous 3.1 mmol/L (0.4-2.0)
[2023-11-16 02:05] LABS: Basophils # 0.1 K/mm3 (0-0.2); Basophils % 1.9 % (0.1-2.0); Eosinophils # 0.1 K/mm3 (0.0-0.4); Eosinophils % 1.6 % (0.1-12.0); Hematocrit 42.6 % (37.0-47.0); Hemoglobin 14.5 g/dL (12.2-16.2); Lymphocytes # 2.2 K/mm3 (0.7-4.5); Lymphocytes % 38.2 % (10-50); Mean Corpuscular HGB Conc 34.1 g/dL (31.8-35.4); Mean Corpuscular Hemoglobin 29.6 pg (27.0-31.2); Mean Corpuscular Volume 86.8 fl (81-99); Mean Platelet Volume 9.1 fl (7.4-10.4); Monocytes # 0.4 K/mm3 (0.1-1.0); Monocytes % 6.5 % (1.7-9.3); Neutrophils % 51.8 % (37.0-80.0); Platelet Count 219 K/mm3 (142-424); Red Blood Count 4.91 M/mm3 (4.20-5.40); White Blood Count 5.7 K/mm3 (4.8-10.8)
[2023-11-16] MEDS: 0.9 % SODIUM CHLORIDE 1000ML 1,000 ML 999 ML IV (02:10)
[2023-11-16 02:12] LABS: Alanine Aminotransferase 34 U/L (12-78); Albumin Level 4.6 g/dl (3.5-5.0); Albumin/Globulin Ratio 1.4 (1.1-1.8); Alkaline Phosphatase 105 U/L (38-126); Anion Gap 12.2 mEq/L (5-15); Aspartate Amino Transferase 42 U/L (14-36); Bilirubin,Total 1.3 mg/dl (0.2-1.3); Blood Urea Nitrogen 10 mg/dl (7-17); Calcium 9.8 mg/dl (8.4-10.2); Carbon Dioxide 24 mmol/L (22.0-30.0); Chloride 104 mmol/L (98-107); Creatinine Clearance Estimated 47 mL/min (50-200); Estimated Glomerular Filt Rate 54 ml/min (>60); GFR (African American) 65 ML/MIN (>60); Globulin 3.2 g/dL (1.3-3.2); Glucose 131 mg/dl (74-100); Potassium 3.2 mmoL/L (3.5-5.1); Sodium 137 mmol/L (136-145); Total Protein,Serum 7.8 g/dl (6.3-8.2)
[2023-11-16 02:13] LABS: INR 0.89 (0.9-1.1); Prothrombin Time 10.1 seconds (10.1-12.5)
--- NOTE | 2023-11-16 02:13 | PC.NURSE ---
Dr. Hernandez at bedside s/w pt & her son
[2023-11-16 02:22] LABS: NT Pro Brain Natriuretic Pep. 27.6 pg/mL (0-450)
[2023-11-16 02:24] LABS: Troponin I < 0.01 ng/ml (0.00-0.034)
[2023-11-16] MEDS: IOPAMIDOL-370 (76%);100ML BOTTLE 75 ML IV (02:44)
[2023-11-16] MEDS: SODIUM CHLORIDE 0.9% 10ML SYR (RAD ONLY) 10 ML IV (02:44)
[2023-11-16] MEDS: POTASSIUM CHLORIDE 20MEQ TAB 20 MEQ PO (03:00)
[2023-11-16 03:56] LABS: Lactic Acid 1.3 mmol/L (0.7-2.1)
[2023-11-16 04:19] LABS: HIV (1&2) Antibody Rapid NONREACTIVE (NONREACTIVE)
[2023-11-17 05:14] LABS: HCV Ab Non Reactive (Non Reactive)
== END 2023-11-16 04:18 | disposition home or self-care (01) ==
PROVIDERS: Emergency Provider Emergency Medicine; PCP Internal Medicine
DX: F41.0 Panic disorder [episodic paroxysmal anxiety] (principal); R09.89 Other specified symptoms and signs involving the circulatory and respiratory systems; R06.02 Shortness of breath; R06.00 Dyspnea, unspecified
CPT/HCPCS: 70491; 71046; 80053; 82803; 83605; 83880; 84484; 85025; 85610; 86803; 87389; 93005; 96360; 99285; J7030; Q9967

== ENCOUNTER 2023-11-23 10:35 | Outpatient (CLI) | payer MEDICARE, SELFPAY ==
[2023-11-23 17:53] LABS: Chloride 104 mmol/L (98-107); Potassium 4.4 mmoL/L (3.5-5.1); Sodium 142 mmol/L (136-145)
[2023-11-23 17:55] LABS: Blood Urea Nitrogen 9 mg/dl (7-17); Estimated Glomerular Filt Rate 48 ml/min (>60); GFR (African American) 58 ML/MIN (>60)
[2023-11-23 17:56] LABS: Anion Gap 15.4 mEq/L (5-15); Calcium 9.9 mg/dl (8.4-10.2); Carbon Dioxide 27 mmol/L (22.0-30.0); Chol/HDL Ratio 4.1 (1-3.5); Cholesterol 148 mg/dl (140-200); Glucose 91 mg/dl (74-100); HDL Cholesterol 36 mg/dl (40-60); Triglycerides 138 mg/dl (30-150); VLDL Cholesterol 28 mg/dL (0-40)
[2023-11-23 18:07] LABS: Direct LDL Cholesterol 77.73 mg/dL (100-129)
[2023-11-23 18:27] LABS: Thyroid Stimulating Hormone 3.71 uIU/mL (0.465-4.68)
[2023-11-23 18:47] LABS: Uric Acid 8.7 mg/dl (2.5-6.2)
== END 2023-11-23 23:59 | disposition home or self-care (01) ==
LOC: LAB.DROPOF 11-24 13:36
PROVIDERS: PCP Internal Medicine; Visit Provider Internal Medicine
DX: E03.9 Hypothyroidism, unspecified (principal); I10 Essential (primary) hypertension; E87.6 Hypokalemia; E78.5 Hyperlipidemia, unspecified; Z87.39 Personal history of other diseases of the musculoskeletal system and connective tissue
CPT/HCPCS: 80048; 80061; 84443; 84550

== ENCOUNTER 2023-12-26 16:57 | Outpatient (CLI) | payer MEDICARE, SELFPAY ==
[2023-12-26 17:20] LABS: Basophils # 0.1 K/mm3 (0-0.2); Basophils % 1.3 % (0.1-2.0); Eosinophils # 0.1 K/mm3 (0.0-0.4); Eosinophils % 1.6 % (0.1-12.0); Hemoglobin 14.7 g/dL (12.2-16.2); Lymphocytes # 1.7 K/mm3 (0.7-4.5); Mean Corpuscular Hemoglobin 29.5 pg (27.0-31.2); Mean Corpuscular Volume 84.1 fl (81-99); Mean Platelet Volume 9.4 fl (7.4-10.4); Monocytes # 0.6 K/mm3 (0.1-1.0); Monocytes % 8.8 % (1.7-9.3); Neutrophils # 3.8 K/mm3 (1.8-7.8); Neutrophils % 61.3 % (37.0-80.0); Platelet Count 235 K/mm3 (142-424); Red Cell Distribution Width 14.2 % (11.5-17.5); White Blood Count 6.2 K/mm3 (4.8-10.8)
[2023-12-26 21:55] LABS: Alanine Aminotransferase 28 U/L (12-78); Albumin Level 4.7 g/dl (3.5-5.0); Albumin/Globulin Ratio 1.6 (1.1-1.8); Alkaline Phosphatase 124 U/L (38-126); Aspartate Amino Transferase 36 U/L (14-36); Bilirubin,Total 1.4 mg/dl (0.2-1.3); Blood Urea Nitrogen 9 mg/dl (7-17); Calcium 9.8 mg/dl (8.4-10.2); Carbon Dioxide 25 mmol/L (22.0-30.0); Chloride 103 mmol/L (98-107); Estimated Glomerular Filt Rate 54 ml/min (>60); GFR (African American) 65 ML/MIN (>60); Glucose 66 mg/dl (74-100); Sodium 142 mmol/L (136-145); Total Protein,Serum 7.7 g/dl (6.3-8.2); Uric Acid 5.5 mg/dl (2.5-6.2)
== END 2023-12-26 23:59 | disposition home or self-care (01) ==
LOC: LAB.DROPOF 16:57
PROVIDERS: PCP Internal Medicine; Visit Provider Internal Medicine
DX: M10.9 Gout, unspecified (principal); I10 Essential (primary) hypertension
CPT/HCPCS: 80053; 84550; 85025

== ENCOUNTER 2024-05-23 14:50 | Outpatient (CLI) | payer MEDICARE, SELFPAY ==
[2024-05-23 14:55] LABS: Basophils % 0.9 % (0.1-2.0); Eosinophils # 0.1 K/mm3 (0.0-0.4); Eosinophils % 2.6 % (0.1-12.0); Hematocrit 39.7 % (37.0-47.0); Hemoglobin 13.4 g/dL (12.2-16.2); Lymphocytes # 1.3 K/mm3 (0.7-4.5); Lymphocytes % 27.6 % (10-50); Mean Corpuscular HGB Conc 33.8 g/dL (31.8-35.4); Mean Corpuscular Volume 85.9 fl (81-99); Mean Platelet Volume 11.7 fl (7.4-10.4); Monocytes # 0.3 K/mm3 (0.1-1.0); Monocytes % 6.6 % (1.7-9.3); Neutrophils # 2.8 K/mm3 (1.8-7.8); Neutrophils % 62.1 % (37.0-80.0); Nucleated Red Blood Cells # 0 10^3/uL; Nucleated Red Blood Cells % 0 %; Platelet Count 194 K/mm3 (142-424); Red Blood Count 4.62 M/mm3 (4.20-5.40); Red Cell Distribution Width 12.9 % (11.5-17.5); Red Cell Distribution Width-SD 39.8 fL; White Blood Count 4.6 K/mm3 (4.8-10.8)
[2024-05-23 16:52] LABS: Alanine Aminotransferase 16 U/L (12-78); Albumin Level 4.3 g/dl (3.5-5.0); Albumin/Globulin Ratio 1.4 (1.1-1.8); Alkaline Phosphatase 114 U/L (38-126); Anion Gap 15.3 mEq/L (5-15); Aspartate Amino Transferase 31 U/L (14-36); Bilirubin,Total 1.3 mg/dl (0.2-1.3); Blood Urea Nitrogen 10 mg/dl (7-17); Calcium 9.3 mg/dl (8.4-10.2); Carbon Dioxide 27 mmol/L (22.0-30.0); Chloride 103 mmol/L (98-107); Chol/HDL Ratio 4.1 (1-3.5); Cholesterol 142 mg/dl (140-200); Estimated Glomerular Filt Rate 54 ml/min (>60); GFR (African American) 65 ML/MIN (>60); Globulin 3.1 g/dL (1.3-3.2); Glucose 87 mg/dl (74-100); HDL Cholesterol 35 mg/dl (40-60); Potassium 3.3 mmoL/L (3.5-5.1); Sodium 142 mmol/L (136-145); Total Protein,Serum 7.4 g/dl (6.3-8.2); Triglycerides 152 mg/dl (30-150); Uric Acid 8.7 mg/dl (2.5-6.2); VLDL Cholesterol 30 mg/dL (0-40)
[2024-05-23 17:02] LABS: Direct LDL Cholesterol 68.31 mg/dL (100-129)
[2024-05-23 17:21] LABS: Thyroid Stimulating Hormone 0.73 uIU/mL (0.465-4.68)
== END 2024-05-23 23:59 | disposition home or self-care (01) ==
LOC: LAB.DROPOF 14:50
PROVIDERS: PCP Internal Medicine; Visit Provider Internal Medicine
DX: E03.9 Hypothyroidism, unspecified (principal); I12.9 Hypertensive chronic kidney disease with stage 1 through stage 4 chronic kidney disease, or unspecified chronic kidney disease; N18.9 Chronic kidney disease, unspecified; E78.5 Hyperlipidemia, unspecified; Z87.39 Personal history of other diseases of the musculoskeletal system and connective tissue
CPT/HCPCS: 80053; 80061; 84443; 84550; 85025

== ENCOUNTER 2024-11-26 12:05 | Outpatient (CLI) | payer MEDICARE, SELFPAY ==
[2024-11-26 14:21] LABS: Albumin Level 4.3 g/dl (3.5-5.0); Chloride 100 mmol/L (98-107); Potassium 3.5 mmoL/L (3.5-5.1); Sodium 141 mmol/L (136-145)
[2024-11-26 14:23] LABS: Blood Urea Nitrogen 6 mg/dl (7-17); Creatinine,Serum 1.10 mg/dl (0.52-1.04); Estimated Glomerular Filt Rate 48 ml/min (>60); GFR (African American) 58 ML/MIN (>60)
[2024-11-26 14:24] LABS: Alanine Aminotransferase 19 U/L (12-78); Albumin/Globulin Ratio 1.3 (1.1-1.8); Alkaline Phosphatase 118 U/L (38-126); Anion Gap 12.5 mEq/L (5-15); Aspartate Amino Transferase 32 U/L (14-36); Bilirubin,Total 1.1 mg/dl (0.2-1.3); Calcium 9.1 mg/dl (8.4-10.2); Carbon Dioxide 32 mmol/L (22.0-30.0); Cholesterol 236 mg/dl (140-200); Globulin 3.3 g/dL (1.3-3.2); Glucose 93 mg/dl (74-100); HDL Cholesterol 40 mg/dl (40-60); Total Protein,Serum 7.6 g/dl (6.3-8.2); Triglycerides 230 mg/dl (30-150)
[2024-11-26 14:58] LABS: Thyroid Stimulating Hormone 44.30 uIU/mL (0.465-4.68)
[2024-11-26 15:55] LABS: Uric Acid 9.3 mg/dl (2.5-6.2)
== END 2024-11-26 23:59 ==
LOC: LAB.DROPOF 11-28 12:06
PROVIDERS: PCP Internal Medicine; Visit Provider Internal Medicine
DX: E78.5 Hyperlipidemia, unspecified (principal); E03.9 Hypothyroidism, unspecified; I12.9 Hypertensive chronic kidney disease with stage 1 through stage 4 chronic kidney disease, or unspecified chronic kidney disease; N18.9 Chronic kidney disease, unspecified; M10.9 Gout, unspecified
CPT/HCPCS: 80053; 80061; 84443; 84550

== ENCOUNTER 2025-01-16 14:50 | Outpatient (CLI) | payer MEDICARE, SELFPAY ==
[2025-01-17] LABS: Thyroid Stimulating Hormone 1.48 uIU/mL (0.465-4.68)
== END 2025-01-16 23:59 ==
LOC: LAB.DROPOF 01-18 11:40
PROVIDERS: PCP Internal Medicine; Visit Provider Internal Medicine
DX: E03.9 Hypothyroidism, unspecified (principal)
CPT/HCPCS: 84443